=== PATIENT | female | born 1960 | race Caucasian/White ===

== ENCOUNTER → 2016-10-09 | Outpatient (CLI) | payer OTHER | END | disposition home or self-care (01) | LOC: RAD 09:13 | PROVIDERS: ATTEND Physician Assistant Medical | DX: R16.1 Splenomegaly, not elsewhere classified (principal) | CPT/HCPCS: 76700 ==

== ENCOUNTER 2016-10-28 13:33 | Emergency (ER) | payer OTHER ==
[~2016-10-28] VITALS: Ht 180.3 cm; Wt 136.4 kg
[2016-10-28] MEDS ORDERED: SODIUM CHLORIDE FLUSH 10ML SYR IVF ONE (15:00)
[2016-10-28] MEDS ORDERED: AMPH20TA2 PO (15:06)
[2016-10-28] MEDS ORDERED: RANI75TA12 PO (15:06)
[2016-10-28] MEDS ORDERED: AMPH20CA7 PO (15:06)
[2016-10-28] MEDS ORDERED: ATOR10TA9 PO (15:06)
[2016-10-28] MEDS ORDERED: ZOLP-413 PO (15:06)
[2016-10-28] MEDS ORDERED: DESV100T PO (15:06)
[2016-10-28] MEDS ORDERED: LEVO112T4 PO (15:06)
[2016-10-28] MEDS ORDERED: ATOR20TA9 PO (15:06)
[2016-10-28] MEDS ORDERED: METF500T4 PO (15:06)
[2016-10-28] MEDS ORDERED: MOME17SP NAS (15:06)
[2016-10-28 15:43] LABS: PATH.CAST-FLAG NOT PRESENT; SPERM-FLAG NOT PRESENT; SRC-FLAG NOT PRESENT; XTAL-FLAG NOT PRESENT; YLC-FLAG NOT PRESENT
[2016-10-28 16:31] LABS: ASPARTATE AMINO TRANSFERASE 16 U/L (15-37); BLOOD UREA NITROGEN 12 mg/dL (7-18)
[2016-10-28 16:35] LABS: IS PT STATUS REG ER OR PRE ER? YES
[2016-10-28 17:00] VITALS: BP 130/80
== END 2016-10-28 17:45 ==
LOC: ED 16:24
DX: R10.11 Right upper quadrant pain (principal); R10.13 Epigastric pain
CPT/HCPCS: 36415; 71010; 80053; 81001; 83690; 84484; 85025; 93005

== ENCOUNTER → 2016-11-15 | Outpatient (CLI) | payer OTHER ==
[~2016-11-15] MED LIST: AMPH20CA7 PO; AMPH20TA2 PO; ATOR10TA9 PO; ATOR20TA9 PO; DESV100T PO; LEVO112T4 PO; METF500T4 PO; MOME17SP NAS; RANI75TA12 PO; ZOLP-413 PO
== END | disposition home or self-care (01) ==
LOC: PETCFH 12:42
PROVIDERS: ATTEND Nurse Practitioner Family
DX: R16.1 Splenomegaly, not elsewhere classified (principal); R10.9 Unspecified abdominal pain
CPT/HCPCS: 78226; A9537